=== PATIENT | female | born 1965 | race Caucasian/White ===

== ENCOUNTER 2020-04-28 14:00 | Emergency (ER) | payer OTHER ==
[2020-04-28 15:21] LABS: BASOPHIL 0.4 % (0-2); EOSINOPHIL 0 % (0-5); HCT 49.2 % (37.0-47.0); HGB 16.3 g/dl (12.5-16.0); LYMPHOCYTE 11.3 % (15-48); MCH 30.1 pg (25.0-31.0); MCHC 33.1 g/dL (32.0-36.0); MCV 90.8 fL (78.0-100.0); MONOCYTE 5.7 % (0-12); MPV 9.4 fL (6.0-9.5); NEUTROPHIL 82.3 % (41-80); NRBC 0; PLT 284 K/uL (150-400); RBC 5.42 M/uL (4.20-5.40); RDW 12.2 % (11.5-14.0); WBC 11.7 K/uL (4.0-10.5)
[2020-04-28 15:25] LABS: INR 1.05 (0.9-1.2); PTT 30.3 SECONDS (22.2-34.7)
[2020-04-28 15:27] LABS: BILIRUBIN 1+ mg/dL (NEGATIVE); BLOOD 2+ Ery/uL (NEGATIVE); CLARITY CLEAR (CLEAR); COLOR YELLOW (YELLOW); GLUCOSE (U) NORMAL (NORMAL); LEUKOCYTES NEGATIVE Leu/uL (NEGATIVE); NITRITE NEGATIVE (NEGATIVE); PROTEIN TRACE (LOW) mg/dL (NEGATIVE)
[2020-04-28 15:37] LABS: BILIRUBIN - TOTAL 0.6 mg/dL (0.2-1.0); BUN/CREAT RATIO (CALC) 25.4 RATIO; CREATININE 0.59 mg/dL (0.51-0.95); GLOBULIN (CALCULATION) 3.6 g/dL; IRON % SATURATION 31.4 %SAT (20-50); MAGNESIUM 1.9 mg/dL (1.8-2.4); POTASSIUM 3.4 mmol/L (3.5-5.1); TOTAL PROTEIN 7.6 g/dL (6.4-8.2)
[2020-04-28 15:50] LABS: BACTERIA 1+; MUCOUS MODERATE
[2020-04-28] MEDS ORDERED: NORCO 5-325 TA1 EACH PO ×2 (17:19→17:21)
[2020-04-28] MEDS ORDERED: ZOFRAN4 M1 PO ×2 (17:19→17:21)
[2020-04-28] MEDS ORDERED: NAPROXEN500 MG PO ×2 (17:19→17:21)
[2020-04-28] MEDS ORDERED: BACTRIM DS TAB1 EACH PO ×2 (17:19→17:21)
== END 2020-04-28 18:30 | disposition home or self-care (01) ==
LOC: FER 14:00
PROVIDERS: Emergency Medicine
DX: R10.11 Right upper quadrant pain (principal); R11.2 Nausea with vomiting, unspecified; I10 Essential (primary) hypertension; Z87.19 Personal history of other diseases of the digestive system; Z79.899 Other long term (current) drug therapy
CPT/HCPCS: 36415; 80053; 81001; 83540; 83550; 83605; 83690; 83735; 84145; 85025; 85610; 85730; 93005; J0696; J1170; J2405; J7030; Q9967